=== PATIENT | female | born 1975 | race Caucasian/White ===

== ENCOUNTER 2017-08-27 06:14 | Emergency (ER) | payer SELFPAY ==
[~2017-08-27] VITALS: Ht 165.1 cm; Wt 72.7 kg
[~2017-08-27 06:14] MED LIST: METF500T6 PO
[2017-08-27 06:15] VITALS: BP 116/69
[2017-08-27 06:30] LABS: GLUCOSE,POINT OF CARE 100 MG/DL (70-110)
[2017-08-27] MEDS ORDERED: IBUPROFEN 600 MG TABLET PO ONE (07:00)
[2017-08-27] MEDS ORDERED: CEPHALEXIN MONOHYDRATE 500 MG CAPSULE PO ONE (07:00)
[2017-08-27] MEDS ORDERED: ACETAMINOPHEN/CODEINE 300-30 MG TABLET PO ONE (07:00)
== END 2017-08-27 07:21 | disposition home or self-care (01) ==
LOC: EMS 06:15
DX: K04.7 Periapical abscess without sinus (principal); E11.9 Type 2 diabetes mellitus without complications; F17.210 Nicotine dependence, cigarettes, uncomplicated; F15.90 Other stimulant use, unspecified, uncomplicated
CPT/HCPCS: 99284; 99406

== ENCOUNTER 2017-11-09 19:32 | Emergency (ER) | payer SELFPAY ==
[~2017-11-09] VITALS: Ht 165.1 cm; Wt 67.3 kg
[2017-11-09 20:03] LABS: GLUCOSE,POINT OF CARE 121 MG/DL (70-110)
[2017-11-09 22:29] LABS: BASOPHILS % (AUTO) 0.7 % (0.0-2.0); EOSINOPHILS % (AUTO) 1.9 % (1.0-6.0); HEMATOCRIT 38.8 % (36-46); HEMOGLOBIN 12.9 g/dL (12.0-16.0); LYMPHOCYTES # (AUTO) 2.7 K/uL (1.0-4.8); LYMPHOCYTES % (AUTO) 23.4 % (22.0-44.0); MEAN CORPUSCULAR HEMOGLOBIN 29.5 pg (26.0-34.0); MEAN CORPUSCULAR HGB CONC 33.2 G/dL (31.0-37.0); MEAN CORPUSCULAR VOLUME 89 fL (80-100); MONOCYTES # (AUTO) 0.7 K/uL (0.1-1.0); NEUTROPHILS # (AUTO) 7.7 K/uL (1.8-7.7); PLATELET COUNT (AUTO) 409 K/uL (150-450); RED BLOOD CELL COUNT(AUTO) 4.36 MIL/uL (4.00-5.20); RED CELL DISTRIBUTION WIDTH 13.3 % (11.5-14.5)
[2017-11-09 22:46] LABS: ANION GAP 2 mmol/L (8-16); CALCIUM, TOTAL 8.7 mg/dL (8.8-10.5); CARBON DIOXIDE 31 mmol/L (22-29); CHLORIDE 103 mmol/L (98-107); CREATININE 0.77 mg/dL (0.60-1.30); GLOMERULAR FILTR. RATE CALC > 60 mL/min (>60); GLUCOSE,RANDOM 96 mg/dL (70-110); POTASSIUM 4.5 mmol/L (3.5-5.1); SODIUM SERUM 136 mmol/L (136-145); UREA NITROGEN, BLOOD 9 mg/dL (7-18)
[2017-11-09 22:56] LABS: ALANINE AMINOTRANSFERASE 18 U/L (12-78); ALKALINE PHOSPHATASE 76 U/L (46-116); ASPARTATE AMINOTRANSFERASE 13 U/L (15-37); BILIRUBIN,TOTAL 0.2 mg/dL (0.1-1.0); HCG,QUANTITATIVE < 1 mIU/mL (0-6); TOTAL PROTEIN, SERUM 7.4 g/dL (6.4-8.2)
[2017-11-09] MEDS ORDERED: CefTRIAXone SODIUM 1 GM/VIAL IM ONE (23:15)
[2017-11-09] MEDS ORDERED: LIDOCAINE/PF 1% 2 ML VIAL IM ONE (23:15)
[2017-11-10 00:03] VITALS: BP 121/80
== END 2017-11-10 00:15 | disposition home or self-care (01) ==
LOC: EMS 19:33
DX: L03.116 Cellulitis of left lower limb (principal); E11.9 Type 2 diabetes mellitus without complications; F17.210 Nicotine dependence, cigarettes, uncomplicated; F15.90 Other stimulant use, unspecified, uncomplicated; Z90.710 Acquired absence of both cervix and uterus; Z98.51 Tubal ligation status
CPT/HCPCS: 36415; 80053; 82962; 84702; 85025; 96372; 99284; J0696; J3490

== ENCOUNTER 2018-02-21 09:05 | Emergency (ER) | payer MEDICAID ==
[~2018-02-21] VITALS: Ht 160 cm; Wt 59.1 kg
[2018-02-21 09:24] LABS: GLUCOSE,POINT OF CARE 115 MG/DL (70-110)
[2018-02-21] MEDS ORDERED: LIDOCAINE 1% 10 ML VIAL INJ ONE (10:30)
[2018-02-21 13:39] VITALS: BP 126/68
== END 2018-02-21 13:41 | disposition home or self-care (01) ==
LOC: EMS 09:07
DX: S60.442A External constriction of right middle finger, initial encounter (principal); E11.9 Type 2 diabetes mellitus without complications; F15.90 Other stimulant use, unspecified, uncomplicated; F17.210 Nicotine dependence, cigarettes, uncomplicated; W49.04XA Ring or other jewelry causing external constriction, initial encounter; Y93.9 Activity, unspecified; Y92.89 Other specified places as the place of occurrence of the external cause; Y99.8 Other external cause status
CPT/HCPCS: 82962; 99284; J3490

== ENCOUNTER 2018-08-01 21:35 | Emergency (ER) | payer MEDICAID ==
[~2018-08-01] VITALS: Ht 162.6 cm; Wt 54.5 kg
[2018-08-01] MEDS ORDERED: METF-960 PO (22:00)
[2018-08-02] MEDS ORDERED: BACITRACIN 0.9 GM PACKET OINTMENT TP ONE
[2018-08-02] MEDS ORDERED: ACETAMINOPHEN 500 MG TABLET PO ONE
[2018-08-02 00:54] LABS: GLUCOSE,POINT OF CARE 144 MG/DL (70-110)
[2018-08-02 01:10] VITALS: BP 116/61
== END 2018-08-02 01:38 | disposition home or self-care (01) ==
LOC: EMS 21:53
DX: B35.3 Tinea pedis (principal); M79.672 Pain in left foot; M79.671 Pain in right foot; F15.10 Other stimulant abuse, uncomplicated; E11.9 Type 2 diabetes mellitus without complications; F17.210 Nicotine dependence, cigarettes, uncomplicated; Z90.710 Acquired absence of both cervix and uterus; Z98.51 Tubal ligation status; Z59.0 Homelessness
CPT/HCPCS: 99406

== ENCOUNTER 2019-09-17 02:23 | Emergency (ER) | payer MEDICAID ==
[~2019-09-17] VITALS: Ht 162.6 cm; Wt 76.3 kg
[~2019-09-17 02:23] MED LIST changes: +METF-960 PO; -METF500T6 PO
[2019-09-17 04:00] VITALS: BP 131/70
[2019-09-17] MEDS ORDERED: BACITRACIN 0.9 GM PACKET OINTMENT TP ONE ×2 (04:15)
== END 2019-09-17 04:18 | disposition home or self-care (01) ==
LOC: EMS 02:23
DX: S60.424A Blister (nonthermal) of right ring finger, initial encounter (principal); E11.9 Type 2 diabetes mellitus without complications; F17.210 Nicotine dependence, cigarettes, uncomplicated; F15.90 Other stimulant use, unspecified, uncomplicated; X58.XXXA Exposure to other specified factors, initial encounter; Y93.89 Activity, other specified; Y92.89 Other specified places as the place of occurrence of the external cause; Y99.8 Other external cause status